=== PATIENT | female | born 1985 | race Caucasian/White ===

== ENCOUNTER 2019-07-14 16:24 | Emergency (ER) | payer OTHER ==
[~2019-07-14] VITALS: Ht 167.6 cm; Wt 95.5 kg
[~2019-07-14 16:24] MED LIST: AMOXICILLIN875 MG PO; CEPHALEXIN500 M1 PO; FLEXERIL5 MG PO; MIRENA52 MG IY; MULTIVITAMIN1 CTB PO; ZANTAC 7575 MG
[2019-07-14 16:38] VITALS: BP 138/77; TEMP 98.1
[2019-07-14 17:11] LABS: COLLECTION METHOD CLEAN CATCH
[2019-07-14 17:17] LABS: PH 7 (5-8); URINE APPEARANCE Hazy; URINE BACTERIA None Seen /hpf; URINE BILIRUBIN Negative (NEGATIVE); URINE BLOOD Negative (NEGATIVE); URINE COLOR Yellow; URINE GLUCOSE Negative (NEGATIVE); URINE KETONE 1+ (NEGATIVE); URINE LEUKOCYTE ESTERASE Negative (NEGATIVE); URINE NITRATE Negative (NEGATIVE); URINE PROTEIN(semi-quant) Negative (NEGATIVE); URINE UROBILINOGEN Negative (NEGATIVE)
[2019-07-14 17:22] LABS: STREP SCREEN NEGATIVE
[2019-07-14 18:08] VITALS: PULSE 98
== END 2019-07-14 18:03 | disposition home or self-care (01) ==
LOC: COL.ER 16:24
PROVIDERS: Emergency Medicine; Physician Assistant
DX: K59.00 Constipation, unspecified (principal); J02.9 Acute pharyngitis, unspecified; K21.9 Gastro-esophageal reflux disease without esophagitis